=== PATIENT | male | born 2000 | race Caucasian/White ===

== ENCOUNTER 2021-01-22 15:58 | Emergency (ER) | payer OTHER ==
[~2021-01-22] VITALS: Ht 167.6 cm; Wt 82.0 kg
[2021-01-22] MEDS ORDERED: ACETAMINOPHEN 325MG TABLET PO STA (16:24)
[2021-01-22 19:12] VITALS: BP 113/77
== END 2021-01-22 19:18 | disposition home or self-care (01) ==
LOC: ER 15:58
DX: S00.81XA Abrasion of other part of head, initial encounter (principal); S83.92XA Sprain of unspecified site of left knee, initial encounter; S30.811A Abrasion of abdominal wall, initial encounter; Y04.0XXA Assault by unarmed brawl or fight, initial encounter; Y07.410 Brother, perpetrator of maltreatment and neglect; Y93.89 Activity, other specified; Y92.018 Other place in single-family (private) house as the place of occurrence of the external cause
CPT/HCPCS: 71045; 73560; 99284